=== PATIENT | male | born 1980 | race Caucasian/White ===

== ENCOUNTER 2020-07-12 02:40 | Emergency (ER) | payer OTHER ==
[2020-07-12 02:54] VITALS: BMI 35.7
--- NOTE | 2020-07-12 03:00 | PDOC ---
Attending Attestation - Resident Resident Name: Freddy Marks - ED Attending Attestation I have performed the following: I have examined & evaluated the patient, The case was reviewed & discussed with the resident, I agree w/resident's findings & plan - HPI HPI: 07/12/20 03:50 see resident hpi - Physicial Exam PE: 07/12/20 03:50 see resident exam - Medical Decision Making 07/12/20 03:50 40-year-old male with upper abdominal pain bloating with discomfort radiating into the chest EKG shows a normal sinus rhythm Have plan for abdominal labs including lipase as well as troponin Plan for antacid treatment and reevaluation Discharge - Discharge Information Problems reviewed: Yes Clinical Impression/Diagnosis: Upper abdominal pain Condition: Fair - Follow up/Referral - Patient Discharge Instructions - Post Discharge Activity
[2020-07-12] MEDS ORDERED: ACETAMINOPHEN 1000 MG/100 ML VIAL (NON FORMULARY) IVPB ONE (03:27)
[2020-07-12] MEDS ORDERED: FAMOTIDINE 20 MG/50 ML IVPB 20 MG/50 ML MG IVPB ONE ×2 (03:30→03:32)
[2020-07-12] MEDS ORDERED: MAG HYDROX/AL HYDROX/SIMETH 30 ML UNIT-DOSE CUP PO ONE (03:31)
[2020-07-12] MEDS ORDERED: ACETAMINOPHEN INJECTION 100 ML IVPB ONE (03:32)
--- OUTSIDE RECORDS SUMMARY | 2020-07-12 03:36 | XMS ---
:1980 Author Organization [facility] Support Name Relationship Address Phone [facility] Unavailable [address] [place] [address] ROBBY HERNÁNDEZ [address] [place] [address] Re-disclosure Warning The records that you are about to access may contain information from federally- assisted alcohol or drug abuse programs. If such information is present, then the following federally mandated warning applies: This information has been disclosed to you from records protected by federal confidentiality rules (42 CFR part 2). The federal rules prohibit you from making any further disclosure of this information unless further disclosure is expressly permitted by the written consent of the person to whom it pertains or as otherwise permitted by 42 CFR part 2. A general authorization for the release of medical or other information is NOT sufficient for this purpose. The Federal rules restrict any use of the information to criminally investigate or prosecute any alcohol or drug abuse patient.The records that you are about to access may contain highly sensitive health information, the redisclosure of which is protected by Article 27-F of the [facility] Public Health law. If you continue you may haveaccess to information: Regarding HIV / AIDS; Provided by facilities licensed or operated by the [facility] Office of Mental Health; or Provided by the [facility] Office for People With Developmental Disabilities. If such information is present, then the following [facility] mandated warning applies: This information has been disclosed to you from confidential records which are protected by state law. State law prohibits you from making any further disclosure of this information without the specific written consent of the person to whom it pertains, or as otherwise permitted by law. Any unauthorized further disclosure in violation of state law may result in a fine or intermediate sentence or both. A general authorization for the release of medical or other information is NOT sufficient authorization for further disclosure. Insurance Providers Payer name Policy type Policy ID Covered Covered libertarian's Policy P cinthia / Coverage libertarian ID relationship to [facility] type [facility] [id number] HEALTH CARE HMO/POS/EPO
[2020-07-12 03:43] LABS: EOS % 0.2 % (0-4.5); HEMATOCRIT 46.1 % (35.4-49); HEMOGLOBIN 15.5 GM/dL (11.7-16.9); LYMPH % 10.7 % (8-40); MCH 29.6 pg (25.7-33.7); MCHC 33.5 g/dl (32.0-35.9); MEAN CELL VOLUME 88.1 fl (80-96); MEAN PLT VOLUME 10.4 fl (7.5-11.1); MONO % 3.9 % (3.8-10.2); NEUT % 84.2 % (42.8-82.8); PLATELET COUNT 268 K/MM3 (134-434); RBC 5.23 M/mm3 (4.00-5.60); RDW 13.7 % (11.9-15.9); WHITE BLOOD COUNT 13.5 K/mm3 (4.0-10.0)
[2020-07-12] MEDS ORDERED: MAG HYDROX/AL HYDROX/SIMETH 30 ML UNIT-DOSE CUP ONE (03:50)
--- NOTE | 2020-07-12 03:58 | PDOC ---
History of Present Illness - General Chief Complaint: Chest Pain Stated Complaint: CHEST PAIN Time Seen by Provider: 07/12/20 02:59 - History of Present Illness Initial Comments: 40 YOM no history presents with abdominal and chest pain since this evening. Patient reports pain is 10/10, distributed across abdomen, no radiation, nothing makes better or worse. Has history of similar sx, received CT and w/u, which showed gas in GI tract. Patient also mentions one bout of vomiting, denies blood in vomit. Denies change in bowel or urinary habits. Denies SOB, fever, chills, nausea or diarrhea, recent travel or sick contacts. Constitutional: No Weight Change, No Fever, No Chills, No Night Sweats, No Fatigue, No Malaise ENT/Mouth: No Hearing Changes, No Ear Pain, No Nasal Congestion, No Sinus Pain, No Hoarseness, No sore throat, No Rhinorrhea, No Swallowing Difficulty Eyes: No Eye Pain, No Swelling, No Redness, No Foreign Body, No Discharge, No Vision Changes Cardiovascular: No Chest Pain, No SOB, No PND, No Dyspnea on Exertion, No Orthopnea, No Claudication, No Edema, No Palpitations Respiratory: No Cough, No Sputum, No Wheezing, No Smoke Exposure, No Dyspnea Gastrointestinal: No Nausea, + Vomiting, No Diarrhea, No Constipation, + Pain, No Heartburn, No Anorexia, No Dysphagia, No Hematochezia, No Melena, No Fl atulence, No Jaundice Genitourinary: No Dysmenorrhea, No DUB, No Dyspareunia, No Dysuria, No Urinary Frequency, No Hematuria, No Urinary Incontinence, No Urgency, No Flank Pain, No Urinary Flow Changes, No Hesitancy Musculoskeletal: No Arthralgias, No Myalgias, No Joint Swelling, No Joint Stiffness, No Back Pain, No Neck Pain, No Injury History Skin: No Skin Lesions, No Pruritis, No Hair Changes, No Breast/Skin Changes, No Nipple Discharge Neuro: No Weakness, No Numbness, No Paresthesias, No Loss of Consciousness, No Syncope, No Dizziness, No Headache, No Coordination Changes, No Recent Falls Psych: No Anxiety/Panic, No Depression, No Insomnia, No Personality Changes, No Delusions, No Rumination, No SI/HI/AH/VH, No Social Issues, No Memory Changes, No Violence/Abuse Hx., No Eating Concerns Heme/Lymph: No Bruising, No Bleeding, No Transfusions History, No Lymphadenopathy Endocrine: No Polyuria, No Polydipsia, No Temperature Intolerance Past History - Medical History Allergies/Adverse Reactions: Allergies Allergy/AdvReac Type Severity Reaction Status Date / Time No Known Allergies Allergy Verified 07/12/20 02:54 Home Medications: Ambulatory Orders NK [No Known Home Medication] 07/12/20 - Psycho-Social/Smoking History Smoking History: Never smoked Have you smoked in the past 12 months: No Information on smoking cessation initiated: No - Substance Abuse Hx (Audit-C & DAST Scrn) How often the patient has a drink containing alcohol: Never Score: In Men: 4 or > Positive; In Women: 3 or > Positive: 0 Screen Result (Pos requires Nsg. Audit-10AR): Negative In the last yr the pt used illegal drug/Rx for NonMed reason: No Score: Yes response is considered Positive: 0 Screen Result (Positive result requires Nsg. DAST-10): Negative *Physical Exam - Vital Signs Last Vital Signs Temp Pulse Resp BP Pulse Ox 97.8 F 63 18 151/87 97 07/12/20 02:51 07/12/20 02:51 07/12/20 02:51 07/12/20 02:51 07/12/20 02:51 - Physical Exam General Appearance: Yes: Appropriately Dressed, Apparent Distress HEENT: positive: LEOBARDO, Normal ENT Inspection, Normal Voice, Symmetrical, TMs Normal Neck: positive: Trachea midline, Normal Thyroid Respiratory/Chest: positive: Lungs Clear, Normal Breath Sounds Cardiovascular: positive: Regular Rhythm, Regular Rate, S1, S2 Gastrointestinal/Abdominal: positive: Flat, Soft Musculoskeletal: positive: Normal Inspection, CVA Tenderness Extremity: positive: Normal Capillary Refill, Normal Inspection Integumentary: positive: Normal Color, Dry, Warm ED Treatment Course - LABORATORY CBC & Chemistry Diagram: 07/12/20 03:31 07/12/20 03:31 - RADIOLOGY Radiology Studies Ordered: Category Date Time Status ABDOMEN & PELVIS CT WITH CONTR [CT] Stat CT Scan 07/12/20 03:27 Ordered CHEST PA & LAT [RAD] Stat Radiology 07/12/20 03:27 Ordered Medical Decision Making - Medical Decision Making 40 YOM w/ abdominal pain - vitals wnl - exam reveals minor ttp of abdomen, patient writhing in bed, uncomfortable requesting pain medication - will do CBC, CMP, CT abdomen, morphine, carafate, pepcid, maalox reassess - labs and CT wnl, will dc patient to f/u with GI Discharge - Discharge Information Problems reviewed: Yes Clinical Impression/Diagnosis: Upper abdominal pain Condition: Fair - Admission No - Follow up/Referral Referrals: Ankit Jerry MD [Staff Physician] - - Patient Discharge Instructions Patient Printed Discharge Instructions: DI for Chest Pain, DI for Abdominal Pain-Adult Additional Instructions: You were seen in the emergency department for abdominal pain. You received labs and imaging which were unremarkable. You received medication for your symptoms. Please return to the emergency department if you experience fevers, chills, vomiting, blood in vomit or urine or stool, worsening chest pain or shortness of breath. Please follow up with GI regarding your visit today. - Post Discharge Activity
[2020-07-12] MEDS ORDERED: SODIUM CHLORIDE 1,000 ML IV SCH (04:00)
[2020-07-12 04:26] LABS: ALBUMIN 3.8 g/dl (3.4-5.0); ALK PHOS 76 U/L (45-117); ANION GAP 9 MMOL/L (8-16); BILIRUBIN,TOTAL 0.3 mg/dL (0.2-1); BLOOD UREA NITROGEN 15.5 mg/dL (7-18); CHLORIDE 104 mmol/L (98-107); CO2 25 mmol/L (21-32); CREATININE 1.1 mg/dL (0.55-1.3); GLUCOSE,RANDOM 146 mg/dL (74-106); LIPASE 47 U/L (73-393); POTASSIUM 4.4 mmol/L (3.5-5.1); SGOT/AST 22 U/L (15-37); SGPT/ALT 30 U/L (13-61); SODIUM 139 mmol/L (136-145); TOT PROT 8.1 g/dl (6.4-8.2)
[2020-07-12] MEDS ORDERED: morphine CARPU-JECT 4 MG/1 ML DISP.SYRIN IVPUSH ONE (04:37)
[2020-07-12] MEDS ORDERED: ONDANSETRON 4 MG/2 ML VIAL IVPUSH ONE (04:37)
[2020-07-12] MEDS ORDERED: morphine SULFATE 4 MG/ML VIAL ONE ×2 (04:42→06:38)
[2020-07-12] MEDS ORDERED: morphine SULFATE 4 MG/ML VIAL IVPUSH ONE (05:58)
[2020-07-12 06:54] VITALS: BP 148/94; PULSE 58; TEMP 98.1
--- NOTE | 2020-07-12 09:38 | EKG ---
Test Reason : Blood Pressure : / mmHG Vent. Rate : 060 BPM Atrial Rate : 060 BPM P-R Int : 134 ms QRS Dur : 078 ms QT Int : 454 ms P-R-T Axes : 045 038 055 degrees QTc Int : 454 ms NORMAL SINUS RHYTHM NORMAL ECG NO PREVIOUS ECGS AVAILABLE Confirmed by Tavo Ortega ([id number]) on 07/12/2020 9:38:25 AM Referred By: Confirmed By:Tavo Ortega
[2020-07-12] MEDS ORDERED: SUCRALFATE 1 GM TABLET (FP) PO SCH (10:00)
== END 2020-07-12 07:18 | disposition home or self-care (01) ==
LOC: JER 02:40
PROC: 3E033NZ Introduction of Analgesics, Hypnotics, Sedatives into Peripheral Vein, Percutaneous Approach (ICD-10-PCS; principal; 2020-07-12)
PROC: 3E033GC Introduction of Other Therapeutic Substance into Peripheral Vein, Percutaneous Approach (ICD-10-PCS; 2020-07-12)
DX: R10.10 Upper abdominal pain, unspecified (principal)
CPT/HCPCS: 36415; 71046-TC-FY; 74177-TC; 80053; 82550; 82553; 83605; 83690; 84484; 85025; 93005; 93010; 99285-25; J0131